=== PATIENT | female | born 1990 | race Caucasian/White ===

== ENCOUNTER → 2017-12-26 | Day surgery (SDC) | payer BC ==
[~2017-12-26] MED LIST: BENTYL10 MG/1 ML IV; FENTANYL CITRATE/PF 100MCG/2 ML INJ ONE; MIDAZOLAM HCL 2 MG/2 ML VIAL ONE; ONDANSETRON HCL INJ 2 MG/ML VIAL ONE; PANTOPRAZOLE SO40 MG PO; PROPOFOL IV EMULSION 10 MG/ML 50 ML VIAL ONE; ZOFRAN ODT4 MG PO
--- NOTE | 2017-12-26 10:37 | Operative Report ---
DATE OF PROCEDURE: December 26, 2017 PROCEDURE PERFORMED: Esophagogastroduodenoscopy with esophageal dilatation and biopsies. INDICATIONS FOR EGD: Dysphagia. MEDICATION: Patient was done under MAC. Please see anesthesiologist's note. PROCEDURE: With the patient in the left lateral decubitus position, the flexible fiberoptic Olympus gastroscope was introduced into the esophagus under direct visualization without any difficulty. There was some patchy erythema noted in the distal esophagus. A mild stricture was noted in the distal esophagus that was dilated to size 52-[place] Bui. The scope was then advanced with ease into the stomach. Mucosa overlying the antrum and the body revealed some patchy erythema and low-grade to moderate edema, and biopsies were obtained and sent to stain for H. pylori. Pylorus appeared to be of normal contour and shape. It was intubated with ease, and the scope was advanced all the way to the 2nd portion of the duodenum. The scope was then withdrawn slowly. Mucosa overlying the proximal 2nd portion and the duodenal bulb grossly appeared to be within normal limits. The scope was then withdrawn back into the stomach and retroflexed, and the mucosa overlying the fundus and the cardia appeared to be within normal limits. The scope was then straightened out. The stomach was decompressed. Scope was subsequently withdrawn. Patient tolerated the procedure well. IMPRESSION 1. Distal esophagitis, mild. 2. Esophageal stricture, mild, distal esophagus, dilated to size 52-[place] Bui. 3. Gastritis, biopsied. Biopsies sent to stain for H. pylori. PLAN: Follow up histology. Continue Protonix 40 mg 1 p.o. a.c. b.i.d. Add Carafate 1 gram p.o. a.c. t.i.d. and nightly. If reflux symptoms persist, will initiate Reglan 10 mg p.o. a.c. t.i.d. and nightly. Job#: [id number]
== END | disposition home or self-care (01) ==
LOC: OR 08:23
PROVIDERS: ATTEND Internal Medicine Gastroenterology
DX: K22.2 Esophageal obstruction (principal); K29.70 Gastritis, unspecified, without bleeding; K20.9 Esophagitis, unspecified; K58.9 Irritable bowel syndrome, unspecified; K59.00 Constipation, unspecified; D64.9 Anemia, unspecified
CPT/HCPCS: 43239; 43450; 81025; J2250; J2405

== ENCOUNTER → 2017-12-30 | Outpatient (CLI) | payer BC ==
[~2017-12-30] MED LIST changes: -FENTANYL CITRATE/PF 100MCG/2 ML INJ ONE; -MIDAZOLAM HCL 2 MG/2 ML VIAL ONE; -ONDANSETRON HCL INJ 2 MG/ML VIAL ONE; -PROPOFOL IV EMULSION 10 MG/ML 50 ML VIAL ONE
--- NOTE | 2017-12-30 13:03 | Diagnostic Imaging Report ---
PROCEDURE: X-RAY UPPER GI SERIES WITH SMALL BOWEL FOLLOW-THROUGH TECHNIQUE:Multiple fluoroscopic spot images were acquired during the dynamic evaluation of the esophagus, stomach, and duodenum after the administration of effervescent crystals and thin and thick barium. Images were obtained in the upright and supine positions from multiple obliquities. Additional oral contrast was administered. Serial overhead images were acquired. Spot compression images of the terminal ileum were obtained. COMPARISON: None. INDICATIONS: NAUSEA, ABDOMEN PAIN FINDINGS: ESOPHAGUS: Motility: Within normal limits. Mucosa: Unremarkable. Distensibility: Normal. GASTROESOPHAGEAL JUNCTION: No evidence of hiatal hernia. GASTROESOPHAGEAL REFLUX: None observed. STOMACH: Normally distensible and demonstrates normal contours and mucosal pattern. DUODENUM: Bulb and sweep are normal. Duodenal-jejunal junction is in the normal expected position. SMALL BOWEL FOLLOW THROUGH: Small bowel loops are normal in caliber and distribution. Spot compression views of the terminal ileum are normal. The transit time was normal. IMPRESSION: No acute radiographic abnormality. Dictated by: Jhonny Son M.D. on 12/30/2017 at 13:04 Electronically approved by: Jhonny Son M.D. on 12/30/2017 at 13:04
== END ==
LOC: DX 08:28
PROVIDERS: ATTEND Internal Medicine Gastroenterology
DX: R13.10 Dysphagia, unspecified (principal); R11.0 Nausea
CPT/HCPCS: 74249